=== PATIENT | female | born 1955 | race Two or more races ===

== ENCOUNTER → 2017-09-20 | Day surgery (SDC) | payer OTHER ==
[~2017-09-20] VITALS: Ht 162.6 cm; Wt 79.4 kg
[~2017-09-20] MED LIST: ASPI-COR81 M3 PO; ATENOLOL50 MG PO; ENALAPRIL5 M1 PO; NAP500 PO; NOR5 PO; ZOCOR40 MG PO
[2017-09-20 09:15] VITALS: BP 150/73
[2017-09-20 14:10] VITALS: BP 118/60
== END | disposition home or self-care (01) ==
LOC: DS 08:30 → OR 08:30 → DS 08:55
PROVIDERS: Surgery
PROC: 0FT44ZZ Resection of Gallbladder, Percutaneous Endoscopic Approach (ICD-10-PCS; principal; 2017-09-20 11:00)
DX: K80.10 Calculus of gallbladder with chronic cholecystitis without obstruction (principal); I10 Essential (primary) hypertension; K21.9 Gastro-esophageal reflux disease without esophagitis; E66.2 Morbid (severe) obesity with alveolar hypoventilation
CPT/HCPCS: 82962; J0690; J1170; J2405; J2704; J2710; J3010; J3490; J7030